=== PATIENT | female | born 1985 | race African-American/Black ===

== ENCOUNTER 2016-08-19 07:31 | Emergency (ER) | payer MEDICARE, OTHER | END 2016-08-19 09:11 | disposition home or self-care (01) | LOC: CED 07:31 | DX: T16.1XXA Foreign body in right ear, initial encounter (principal); Z88.0 Allergy status to penicillin; Z88.2 Allergy status to sulfonamides; W45.8XXA Other foreign body or object entering through skin, initial encounter | CPT/HCPCS: 69200; 99283 ==